=== PATIENT | male | born 1995 | race African-American/Black ===

== ENCOUNTER 2022-01-02 18:08 | Emergency (ER) | payer OTHER, SELFPAY ==
[2022-01-02] VITALS (13 sets, daily range): BP systolic 112–127; BP diastolic 40–78; PULSE 76–100; RESP 16–19; TEMP 36.7; O2SAT 98–100
--- NOTE | 2022-01-02 18:31 | ECG_ITS ---
Measurements Intervals Fowler Rate: 88 P: 82 MD: 136 QRS: 85 QRSD: 89 T: 28 QT: 346 QTc: 419 Interpretive Statements SINUS RHYTHM WITH SINUS ARRHYTHMIA NONSPECIFIC ST & T-WAVE ABNORMALITY NO PREVIOUS ECG AVAILABLE FOR COMPARISON Electronically Signed On 01-03-2022 8:51:12 CDT by Jeremy Borges M.D.
[2022-01-02 19:58] LABS: Basophils Percent Auto 0.7 % (0.2-1.2); Eosinophils Absolute Auto 0.2 K/mm3 (0-0.3); Eosinophils Percent Auto 3.3 % (0-4.4); Hematocrit 42.9 % (42.0-52.0); Immature Granulocyte Absolute 0.01 K/mm3 (0.00-0.031); Immature Granulocyte Percent A 0.2 % (0-0.5); Lymphocytes Absolute Auto 1.99 K/mm3 (0.9-3.2); Lymphocytes Percent Auto 36.4 % (18.3-44.2); Mean Corpuscular Hemoglobin 29.9 pg (26-34); Mean Corpuscular Volume 85.6 fl (80-100); Mean Platelet Volume 9.9 fl (7.4-10.4); Monocytes Absolute Auto 0.6 K/mm3 (0.1-0.6); Monocytes Percent Auto 10.2 % (2.6-8.5); Neutrophils Absolute Auto 2.7 K/mm3 (1.3-6.7); Neutrophils Percent Auto 49.2 % (45.5-73.1); Platelet Count Result 258 k/mm3 (150-375); Red Blood Count 5.01 M/mm3 (4.6-6.20); Red Cell Distribution Width 12.4 % (11.5-14.5); White Blood Count 5.5 K/mm3 (4.5-10.0)
[2022-01-02 20:07] LABS: Alanine Aminotransferase 20 U/L (6-50); Albumin Level 4.9 g/dL (3.5-5.1); Alkaline Phosphatase 82 U/L (38-126); Anion Gap 11 mmol/L (8-16); Aspartate Amino Transferase 24 U/L (17-59); Bilirubin,Total 1.1 mg/dL (0.2-1.3); Blood Urea Nitrogen 14 mg/dL (9-20); Calcium 9.8 mg/dL (8.4-10.2); Carbon Dioxide 28 mmol/L (22-30); Chloride 96 mmol/L (98-107); Estimated CRCL calculation 106 ml/min; Estimated Glomerular Filt Rate > 60; Glucose 88 mg/dL (65-110); Potassium 3.7 mmol/L (3.4-5.0); Sodium 135 mmol/L (137-145)
--- NOTE | 2022-01-02 20:24 | ED.GENADULT ---
HPI - General Adult General Chief complaint: Syncope Stated complaint: SYNCOPAL EPISODE Time Seen by Provider: 01/02/22 19:54 History of Present Illness HPI narrative: Patient 26-year-old gentleman who presents the emergency department with chief complaint of syncope. The patient reports that he has been on a diet where he has been eating 1 meal per day and reports today he went and did a workout routine and then went and did yoga. While doing yoga the patient's got lightheaded and briefly passed out. The patient reports he hit his head against the yoga mat denies any other injury or complaint. The patient reports he starting to feel better now reports no chest pain no shortness of breath. Patient reports he has no other significant past medical history. Review of Systems Review of Systems: A 10 system review of systems was completed on the patient and is negative except for what is stated in the HPI. Nursing and ancillary documentation was reviewed. Exam Narrative: GENERAL: Well-appearing, well-nourished, and in no acute distress. HEAD: Normocephalic, atraumatic. EYES: PERRLA and EOMI. ENT: Nares clear, no rhinorrhea or epistaxis. Mucous membranes moist. NECK: Supple. CHEST: Clear to auscultation. No respiratory distress. HEART: Regular rate and rhythm. No murmur heard. Normal peripheral pulses. ABDOMEN: Soft, nontender, nondistended, normal active bowel sounds. EXTREMITIES: Normal range of motion. No edema. SKIN: Warm, dry, no rash. NEURO: No focal deficits. Alert and oriented x3. PSYCH: Normal mood and affect. Course Course Emergency Course: EKG is sinus rhythm rate of [address] elevation or ST depression Vital Signs Vital signs: Vital Signs Temperature 36.7 C 01/02/22 18:27 Pulse Rate 100 01/02/22 18:27 Respiratory Rate 16 01/02/22 18:27 Blood Pressure 112/40 L 01/02/22 18:27 Pulse Oximetry 100 01/02/22 18:27 Oxygen Delivery Room Air 01/02/22 18:27 Temperature 36.7 C 01/02/22 18:27 Pulse Rate 81 01/02/22 19:50 Respiratory Rate 19 01/02/22 19:50 Blood Pressure 127/78 01/02/22 19:50 Pulse Oximetry 100 01/02/22 19:50 Oxygen Delivery Room Air 01/02/22 18:27 Medical Decision Making Vital Signs Vital Signs: Vital Signs Temperature 36.7 C 01/02/22 18:27 Pulse Rate 100 01/02/22 18:27 Respiratory Rate 16 01/02/22 18:27 Blood Pressure 112/40 L 01/02/22 18:27 Pulse Oximetry 100 01/02/22 18:27 Oxygen Delivery Room Air 01/02/22 18:27 Temperature 36.7 C 01/02/22 18:27 Pulse Rate 81 01/02/22 19:50 Respiratory Rate 19 01/02/22 19:50 Blood Pressure 127/78 01/02/22 19:50 Pulse Oximetry 100 01/02/22 19:50 Oxygen Delivery Room Air 01/02/22 18:27 Lab Data Result diagrams: 01/02/22 19:44 01/02/22 19:44 Labs: Lab Results 01/02/22 01/02/22 Range/Units 19:44 19:44 WBC 5.5 (4.5-10.0) K/mm3 RBC 5.01 (4.6-6.20) M/mm3 Hgb 15.0 (14.0-18.0) g/dL Hct 42.9 (42.0-52.0) % MCV 85.6 (80-100) fl MCH 29.9 (26-34) pg MCHC 35.0 (32-36) g/dl RDW 12.4 (11.5-14.5) % Plt Count 258 (150-375) k/mm3 MPV 9.9 (7.4-10.4) fl Immature Gran % (Auto) 0.2 (0-0.5) % Neut % (Auto) 49.2 (45.5-73.1) % Lymph % (Auto) 36.4 (18.3-44.2) % [place] % (Auto) 10.2 H (2.6-8.5) % Eos % (Auto) 3.3 (0-4.4) % Baso % (Auto) 0.7 (0.2-1.2) % Lymph # (Auto) 1.99 (0.9-3.2) K/mm3 [place] # (Auto) 0.6 (0.1-0.6) K/mm3 Eos # (Auto) 0.2 (0-0.3) K/mm3 Baso # (Auto) 0.0 (0.0-0.1) K/mm3 Abs Immat Gran (auto) 0.01 (0.00-0.031) K/mm3 Absolute Neuts (auto) 2.7 (1.3-6.7) K/mm3 Absolute Nucleated RBC 0.0 (0.0-0.012) K/mm3 Nucleated RBC % 0.0 (0.0-0.2) % Sodium 135 L (137-145) mmol/L Potassium 3.7 (3.4-5.0) mmol/L Chloride 96 L (98-107) mmol/L Carbon Dioxide 28 (22-30) mmol/L Anion Gap 11 (8-16) mmol/L BUN 14 (9-20) mg/dL Creatinine 1.10
== END 2022-01-02 21:24 | disposition home or self-care (01) ==
PROVIDERS: Nurse Practitioner Family; Emergency Provider Emergency Medicine
DX: R55 Syncope and collapse (principal)
CPT/HCPCS: 36415; 80053; 85025; 93005; 99284